=== PATIENT | male | born 2000 | race Caucasian/White ===

== ENCOUNTER 2022-06-02 05:28 | Outpatient (CLI) | payer BC ==
[~2022-06-02] VITALS: Ht 182.9 cm; Wt 138.6 kg
[~2022-06-02 05:28] MED LIST: CEFD300C PO; CLIN300C3 PO; IBP800T PO; PRD5T PO
== END 2022-06-02 13:09 ==
LOC: PREOP 05:28
PROVIDERS: ATTEND Surgery
DX: Z01.818 Encounter for other preprocedural examination (principal)

== ENCOUNTER 2022-06-09 11:37 | Day surgery (SDC) | payer BC ==
[~2022-06-09] VITALS: Ht 182.9 cm; Wt 138.6 kg
[2022-06-09] VITALS (11 sets, daily range): BP systolic 102–156; BP diastolic 72–98
[2022-06-09] MEDS ORDERED: ceFAZolin INJECTION 2,000 MG in NS (IVPB) 50 ML IV ONE (12:00)
[2022-06-09] MEDS ORDERED: LACTATED RINGERS 1,000 ML IV PRN (12:00)
[2022-06-09] MEDS ORDERED: BUP/EPI 0.5% 1:200,000 (SENSORCAINE) 30 ML VIAL ONE (12:09)
[2022-06-09] MEDS ORDERED: LIDOCAINE PF 2% 5 ML (XYLOCAINE) VIAL ONE (12:12)
[2022-06-09] MEDS ORDERED: proPOfol 200 MG/20 ML (DIPRIVAN) VIAL IV ONE ×2 (12:12→12:48)
[2022-06-09] MEDS ORDERED: fentaNYL INJ 100 MCG/2 ML AMP ONE (12:12)
[2022-06-09] MEDS ORDERED: ONDANSETRON 4 MG/2 ML (SDV) Z0FRAN ONE (12:12)
[2022-06-09] MEDS ORDERED: SEVOFLURANE (ULTANE) 15 ML INHAL SOLN ONE ×2 (12:12→13:33)
--- NOTE | 2022-06-09 12:12 | Progress Note-Pre Operative ---
Pre-Operative Progress Note Date of Available H&P: Jun 01, 2022 Date H&P Reviewed: Jun 09, 2022 Time H&P Reviewed: 12:09 History & Physical: H&P Reviewed, Patient Examed, No changes noted Pre-Operative Diagnosis: Pilonidal Cyst ESTEFANI BURNS DO Jun 09, 2022 12:12
[2022-06-09] MEDS ORDERED: MIDAZOLAM 2 MG/2 ML (VERSED) VIAL ONE (12:13)
[2022-06-09] MEDS ORDERED: ROCURONIUM 50 MG/5 ML (ZEMURON) VIAL IV ONE (12:48)
[2022-06-09] MEDS ORDERED: HYDROmorphone 2 MG/ML VIAL (DILAUDID) ONE (12:57)
[2022-06-09] MEDS ORDERED: KETOROLAC 30 MG/ML VIAL ONE (13:02)
--- NOTE | 2022-06-09 13:04 | Progress Note-Post Operative ---
Post-Operative Progess Note Surgeon (s)/Instructor Tap Dancing (s) Surgeon ESTEFANI BURNS DO Instructor Tap Dancing: TAMMY Murray Pre-Operative Diagnosis Pilonidal Cyst Post-Operative Diagnosis same Procedure & Operative Findings Date of Procedure 06/09/22 Procedure Performed/Findings Excision of pilonidal cyst with packing Anesthesia Type GET Estimated Blood Loss Estimated blood loss (mL): scant Specimens/Packing Specimens Removed pilonidal cyst ESTEFANI BURNS DO Jun 09, 2022 13:04
[2022-06-09] MEDS ORDERED: ACHYD1T PO (13:05)
--- NOTE | 2022-06-09 13:06 | Discharge Inst-Surgical ---
Discharge Inst-Surgical Depart Medication/Instructions New, Converted or Re-Newed RX: Transmitted to Pharmacy Patient Instructions Follow up Appt: Make appointment for 1 week. [phone] Instructions: No lifting greater than 20 pounds. No strenuous activity. May shower in 24 hours, ok for sitz bath or soaking. Use incentive spirometer at home as directed. No Smoking Skin/Wound Care: May remove bandages in am. You need to leave the packing in place and change it daily Symptoms to Report: Appetite Changes, Extremity Discoloration, Numbness/Tingling, Swelling Increased, Bleeding Excessive, Eyesight Changes, Pain Increased, Urine Color Change, Constipation(Persistent), Fever over 101 degree F, Pain/Pressure in chest, Urinating Difficulty, Cough Up/Vomit Blood, Heart Beat Irreg/Pounding, Pain/Pressure in jaw, Cramps in feet or legs, Lightheadedness, Pain/Pressure in shoulder, Diarrhea(Persistent), Memory Changes Suddenly, Questions/Concerns, Weight gain consecutive days, Dizziness/Fainting, Nausea/Vomiting, Shortness of Breath, Weight gain over 2 pounds If questions or concerns contact your physician Or seek help at emergency department. Activity Activity as Tolerated: Yes Activity Instructions: Avoid Stress to Incision Driving Instructions: No Driving/Refer to Dr. Tabor Discharge Diet: No Restrictions Diet After 24 Hours: Clear Liquid if Nauseous If Any Problems/Questions/Issu: Contact Your Physician, Go to Emergency Room Skin/Wound Care Infection Signs and Symptoms: Increased Redness, Foul Odor of Wound, Increased Drainage, Skin Itchy or Has a Rash, Increased Swelling, Temperature Above 101 F Bathing Instructions: ESTEAFNI Briones DO Jun 09, 2022 13:06
[2022-06-09] MEDS ORDERED: MEPERIDINE (DEMEROL) INJ 50 MG/ML ONE (13:43)
--- NOTE | 2022-06-09 14:43 | Anesthesia-General Post-Op ---
General Patient Condition Mental Status/LOC: Same as Preop Cardiovascular: Satisfactory Nausea/Vomiting: Absent Respiratory: Satisfactory Pain: Controlled Complications: Absent Post Op Complications Complications None Follow Up Care/Instructions Patient Instructions None needed. Anesthesia/Patient Condition Patient Condition Patient is doing well, no complaints, stable vital signs, no apparent adverse anesthesia problems. No complications reported per nursing. D/C home per [facility] Criteria: Yes HUMBERTO FLORES CRNA Jun 09, 2022 14:43
[2022-06-09] MEDS ORDERED: ONDANSETRON 4 MG/2 ML (SDV) Z0FRAN IVP PRN (14:45)
[2022-06-09] MEDS ORDERED: HYDROmorphone 2 MG/ML VIAL (DILAUDID) IV ONE (14:45)
[2022-06-09] MEDS ORDERED: MEPERIDINE (DEMEROL) INJ 50 MG/ML IVP ONE (14:45)
[2022-06-09] MEDS ORDERED: HYDROcodone/APAP 5 MG/325 MG (LORTAB) TAB ONE (15:18)
[2022-06-09] MEDS ORDERED: HYDROcodone/APAP 5 MG/325 MG (LORTAB) TAB PO ONE (15:30)
--- NOTE | 2022-06-09 21:57 | OPERATIVE REPORT ---
DATE OF SERVICE: 06/09/2022 PREOPERATIVE DIAGNOSIS: Pilonidal cyst. POSTOPERATIVE DIAGNOSIS: Pilonidal cyst. PROCEDURE: Excision of pilonidal cyst with packing. SURGEON: Eddie Purdy DO FINISHING ROOM SUPERVISOR: Konrad Akbar MS3. ANESTHESIA: General endotracheal tube. SPECIMENS: Pilonidal cyst. BLOOD LOSS: Less than 5 mL. FLUIDS: Per Anesthesia. POSTOPERATIVE CONDITION: Stable. INDICATIONS FOR PROCEDURE: The patient is a 22-year-old male who has a pilonidal cyst that had been recently inflamed and infected. That has since gotten better, he wanted to get this removed, so it did not happen again, could have been his second episode. FINDINGS: The patient had a pilonidal cyst removed and sent to pathology. DESCRIPTION OF PROCEDURE: After informed consent was obtained, the patient was brought to the operating room. He was intubated and placed on table in prone position. He was then sterilely prepped and draped in normal fashion. Local lidocaine was used to infiltrate around the skin at a previous incision and two small little openings. This was a pilonidal cyst. I did elliptical incision measuring about 3 cm x about 2 cm wide to go around this area. Infiltrated local, made an incision with #15 blade, carried down through skin into subcutaneous tissue, then deepened down to subcutaneous tissue with Bovie electrocautery all the way down to the sacrum removing this en bloc, passed this off table, did not see any other openings or tracts. No other signs of pilonidal cyst. At this point, copiously irrigated with normal saline. Hemostasis was obtained using Bovie electrocautery. I then elected to pack this incision with 1/2-inch iodoform packing. Area was cleaned and dried dressing placed. The patient tolerated the procedure and was transferred to recovery room in stable condition. Sponge and needle count correct at the end of the case. Job ID: [id number] DocumentID: [id number] Dictated Date: 06/09/2022 14:31:57 Molecular Biologist Date: 06/09/2022 21:55:00 Dictated By: EDDIE PURDY DO
== END 2022-06-09 15:35 | disposition home or self-care (01) ==
LOC: SDC 11:37
PROVIDERS: ATTEND Surgery
DX: L05.91 Pilonidal cyst without abscess (principal)
CPT/HCPCS: 87081